=== PATIENT | female | born 1995 | race Caucasian/White ===

== ENCOUNTER 2017-04-10 21:05 | Emergency (ER) | payer MEDICAID ==
[~2017-04-10] VITALS: Ht 170.2 cm; Wt 109.0 kg
[2017-04-10 21:18] VITALS: BP 154/94
== END 2017-04-10 23:00 | disposition left against medical advice (07) ==
LOC: ER 21:06
DX: R03.0 Elevated blood-pressure reading, without diagnosis of hypertension (principal); Z53.21 Procedure and treatment not carried out due to patient leaving prior to being seen by health care provider